=== PATIENT | male | born 1985 | race Two or more races ===

== ENCOUNTER 2023-01-16 23:32 | Emergency (ER) | payer MEDICAID, OTHER ==
[~2023-01-16] VITALS: Ht 172.7 cm; Wt 63.0 kg
[2023-01-17] VITALS: BP 134/80; PULSE 110; RESP 18; TEMP 98
[2023-01-17] MEDS ORDERED: AMOX875T4 PO (02:14)
[2023-01-17] MEDS ORDERED: TETANUS-DIPTH-ACEL PERTUSSIS 0.5ML SYR Tdap IM ONE (02:15)
[2023-01-17 02:19] VITALS: O2SAT 98
[2023-01-17] MEDS ORDERED: LIDOCAINE 1% HCL (LOCAL ANESTH.) INJ 20ML MDV ID ONE (03:00)
[2023-01-17] MEDS ORDERED: cefTRIAXone SOD 1,000 MG VL IM ONE (03:15)
== END 2023-01-17 03:44 | disposition home or self-care (01) ==
LOC: ER 23:35
DX: S01.511A Laceration without foreign body of lip, initial encounter (principal); F10.10 Alcohol abuse, uncomplicated; Y04.2XXA Assault by strike against or bumped into by another person, initial encounter; Y93.89 Activity, other specified; Y92.89 Other specified places as the place of occurrence of the external cause; Y99.8 Other external cause status; Y90.6 Blood alcohol level of 120-199 mg/100 ml
CPT/HCPCS: 12011; 36415; 80320; 99283; J2001; 90715; J0696